=== PATIENT | male | born 1995 | race Two or more races ===

== ENCOUNTER 2024-05-20 03:44 | Inpatient (IN) | payer MEDICAID ==
[~2024-05-20] VITALS: Ht 182.9 cm; Wt 65.3 kg
[2024-05-20 04:45] LABS: BASOPHILS % (AUTO) 0.6 % (0.0-2.0); HEMATOCRIT 42.7 % (41-53); HEMOGLOBIN 14.7 g/dL (13.5-17.5); LYMPHOCYTES # (AUTO) 2.4 K/uL (1.0-4.8); LYMPHOCYTES % (AUTO) 52.9 % (22.0-44.0); MEAN CORPUSCULAR HGB CONC 34.5 G/dL (31.0-37.0); MEAN CORPUSCULAR VOLUME 102 fL (80-100); MONOCYTES # (AUTO) 0.4 K/uL (0.1-1.0); NEUTROPHILS # (AUTO) 1.6 K/uL (1.8-7.7); NEUTROPHILS % (AUTO) 36.5 % (40.0-70.0); PLATELET COUNT (AUTO) 221 K/uL (150-450); RED BLOOD CELL COUNT(AUTO) 4.21 MIL/uL (4.50-5.90); RED CELL DISTRIBUTION WIDTH 14.3 % (11.5-14.5); WHITE BLOOD COUNT (AUTO) 4.5 K/uL (4.5-11.0)
[2024-05-20 04:55] LABS: ANION GAP 7 mmol/L (8-16); CALCIUM, TOTAL 8.8 mg/dL (8.8-10.5); CARBON DIOXIDE 30 mmol/L (22-29); CHLORIDE 107 mmol/L (98-107); CREATININE 0.85 mg/dL (0.60-1.30); GLOMERULAR FILTR. RATE CALC > 60 mL/min (>60); GLUCOSE,RANDOM 94 mg/dL (70-110); POTASSIUM 3.9 mmol/L (3.5-5.1); SODIUM SERUM 144 mmol/L (136-145); UREA NITROGEN, BLOOD 3 mg/dL (7-18)
[2024-05-20 04:55] LABS: ALCOHOL, URINE DRUG SCREEN POSITIVE (NEGATIVE); AMPHET/METH SCREEN,URINE NEGATIVE (NEGATIVE); BARBITURATE SCREEN, URINE NEGATIVE (NEGATIVE); BENZODIAZEPINES SCREEN,URINE NEGATIVE (NEGATIVE); CANNABINOID SCREEN,URINE NEGATIVE (NEGATIVE); COCAINE SCREEN,URINE NEGATIVE (NEGATIVE); METHADONE SCREEN, URINE NEGATIVE (NEGATIVE); OPIATE SCREEN,URINE NEGATIVE (NEGATIVE); PHENCYCLIDINE SCREEN,URINE NEGATIVE (NEGATIVE)
[2024-05-20 05:02] LABS: ALANINE AMINOTRANSFERASE 30 U/L (12-78); ALBUMIN 3.8 g/dL (3.4-5.0); ALKALINE PHOSPHATASE 80 U/L (46-116); ASPARTATE AMINOTRANSFERASE 32 U/L (15-37); BILIRUBIN,TOTAL 0.3 mg/dL (0.1-1.0); TOTAL PROTEIN, SERUM 7.4 g/dL (6.4-8.2)
[2024-05-20 05:04] LABS: ACETAMINOPHEN < 2 mcg/mL (10-30)
[2024-05-20 05:07] LABS: ALCOHOL, BLOOD (SERUM) 312 mg/dL (0-10)
[2024-05-20 05:13] LABS: SALICYLATE 0.7 mg/dL (2.8-20.0)
[2024-05-20] MEDS: PERTUSS(ACELL),DIPH,TET/PF 0.5 ML SYRINGE [ADULT] IM. ONE (06:52)
[2024-05-20] MEDS ORDERED: HALOPERIDOL 5 MG TABLET PO PRN (07:00)
[2024-05-20 07:19] LABS: APPEARANCE,URINE CLEAR (CLEAR); BILIRUBIN,URINE NEGATIVE (NEGATIVE); COLOR,URINE COLORLESS (YELLOW); GLUCOSE, URINE (UA) NEGATIVE (NEGATIVE); KETONES,URINE NEGATIVE (NEGATIVE); LEUKOCYTE ESTERASE ,URINE NEGATIVE (NEGATIVE); NITRATE,URINE NEGATIVE (NEGATIVE); OCCULT BLOOD,URINE NEGATIVE (NEGATIVE); PH,URINE 5.5 (5.0-8.0); PROTEIN,URINE NEGATIVE (NEGATIVE); SPECIFIC GRAVITIY, URINE 1.004 (1.003-1.030); UROBILINOGEN,URINE <=1.0 mg/dL (<=1.0)
[2024-05-20] MEDS: BACITRACIN 0.9 GM PACKET OINTMENT TP ONE (08:04)
[2024-05-20 09:30] LABS: COVID AG,FIA SOURCE NASAL SWAB
[2024-05-20 09:48] LABS: SARS-COV2 (COVID) ANTIGEN,FIA Negative (Negative)
[2024-05-20 10:47] VITALS: O2SAT 99
[2024-05-20 13:05] VITALS: BP 132/91; PULSE 98; RESP 18; TEMP 98
[2024-05-20 17:28] VITALS: BP 107/71
[2024-05-20] MEDS: LORazepam 2 MG TABLET PO PRN (17:28)
[2024-05-20 20:53] VITALS: BP 110/80; PULSE 100; RESP 17; TEMP 98; O2SAT 97
[2024-05-21 09:09] VITALS: BP 116/70; PULSE 82; RESP 18; TEMP 98.2; O2SAT 98
[2024-05-21] MEDS: BACITRACIN 28 GM OINTMENT TP SCH (09:47)
[2024-05-21] MEDS: ESCITALOPRAM OXALATE 10 MG TABLET PO SCH (15:31)
[2024-05-21 20:32] VITALS: BP 100/66; PULSE 91; RESP 17; TEMP 98.2; O2SAT 96
[2024-05-21] MEDS: ZOLPIDEM TARTRATE 10 MG TABLET PO PRN (21:46)
[2024-05-22 08:26] VITALS: BP 102/71; PULSE 83; RESP 16; TEMP 97.6; O2SAT 96
[2024-05-22] MEDS ORDERED: ESCITALOPRAM OXALATE 10 MG TABLET PO SCH (09:00)
[2024-05-22 21:11] VITALS: BP 128/82; PULSE 84; RESP 16; TEMP 97.4; O2SAT 98
[2024-05-23 08:03] VITALS: BP 133/92; PULSE 88; RESP 17; TEMP 98; O2SAT 100
[2024-05-23] MEDS ORDERED: ESCI-8 PO (11:31)
== END 2024-05-23 13:20 | disposition home or self-care (01) | DRG 751 ==
LOC: EMS 03:46 → B2S 10:00
PROVIDERS: ADMIT Psychiatry & Neurology Psychiatry; ATTEND Psychiatry & Neurology Psychiatry
PROC: 0JQJ3ZZ Repair Right Hand Subcutaneous Tissue and Fascia, Percutaneous Approach (ICD-10-PCS; 2024-05-20)
PROC: GZ56ZZZ Individual Psychotherapy, Supportive (ICD-10-PCS; principal; 2024-05-21)
PROC: GZHZZZZ Group Psychotherapy (ICD-10-PCS; 2024-05-21)
DX: F33.2 Major depressive disorder, recurrent severe without psychotic features (principal); F10.20 Alcohol dependence, uncomplicated; F41.9 Anxiety disorder, unspecified; Z20.822 Contact with and (suspected) exposure to COVID-19; I10 Essential (primary) hypertension; G47.00 Insomnia, unspecified; Z79.899 Other long term (current) drug therapy; S51.811A Laceration without foreign body of right forearm, initial encounter; X78.8XXA Intentional self-harm by other sharp object, initial encounter; Y93.9 Activity, unspecified; Y92.9 Unspecified place or not applicable
CPT/HCPCS: 80048; 80076; 80307; 81003; 85025; 90715; 93005; G0480; G0481

== ENCOUNTER 2024-05-28 12:23 | Emergency (ER) | payer MEDICAID ==
[~2024-05-28] VITALS: Ht 182.9 cm; Wt 65.3 kg
[~2024-05-28 12:23] MED LIST: ESCI-8 PO
[2024-05-28 12:29] VITALS: TEMP 98.7
[2024-05-28 13:00] VITALS: BP 129/74; PULSE 84; RESP 17; O2SAT 98
== END 2024-05-28 13:11 | disposition home or self-care (01) ==
LOC: EMS 12:24
DX: S51.811D Laceration without foreign body of right forearm, subsequent encounter (principal); Z48.02 Encounter for removal of sutures; Z79.899 Other long term (current) drug therapy; X58.XXXD Exposure to other specified factors, subsequent encounter
CPT/HCPCS: 99281; Z7502

== ENCOUNTER 2024-07-01 09:34 | Emergency (ER) | payer MEDICAID | END 2024-07-01 11:34 | disposition left against medical advice (07) | LOC: EMS 09:34 | DX: Z53.21 Procedure and treatment not carried out due to patient leaving prior to being seen by health care provider (principal) ==